=== PATIENT | male | born 1985 | race African-American/Black ===

== ENCOUNTER 2022-08-23 15:51 | Emergency (ER) | payer OTHER, SELFPAY ==
--- NOTE | 2022-08-23 17:31 | ED.GENADULT ---
HPI - General Adult General Chief complaint: Urogenital-Male Stated complaint: STD Testing Time Seen by Provider: 08/23/22 17:31 Source: patient Mode of arrival: ambulatory Limitations: no limitations History of Present Illness HPI narrative: 37-year-old male patient presents to the [facility] with request for STD testing. Patient states he is sexually active with more than 1 person and last time he had unprotected sex was proximally 2 weeks ago. Patient states about 3 days ago started having pain and burning with urination as well as some lower abdominal pain. Denies any fevers, body aches or chills. Denies any low back pain. Denies any nausea vomiting or diarrhea. Patient states he has had a urinary tract infection before in the past from sexual intercourse. Patient states he only has sex with females and only vaginally. Patient denies any penile discharge at this time. Related Data Allergies Allergy/AdvReac Type Severity Reaction Status Date / Time No Known Allergies Allergy Verified 08/23/22 17:45 Review of Systems Review of Systems: CONSTITUTIONAL: Denies fever, chills, or sweats. EYES: Denies visual changes, redness, or discharge. ENT: Denies rhinorrhea, congestion, sore throat, or otalgia. CARDIOVASCULAR: Denies chest pain, palpitations, or edema. RESPIRATORY: Denies cough or dyspnea. GASTROINTESTINAL: Positive lower abdominal pressure, denies nausea, vomiting, or diarrhea. GENITOURINARY: Positive dysuria denies hematuria. SKIN: Denies rash or itching. MUSCULOSKELETAL: Denies back pain, joint pain, or myalgia. NEUROLOGIC: Denies headache, numbness, or weakness. PSYCHIATRIC: Denies anxiety or depression. PMFSH Comments At the time of my signature I agree with nursing past medical history, surgical, social, and family history. There is no relevant family history pertinent to the presenting complaint. Exam Narrative: GENERAL: Well-appearing, well-nourished, and in no acute distress. HEAD: Normocephalic, atraumatic. EYES: PERRLA and EOMI. ENT: Nares clear, no rhinorrhea or epistaxis. Mucous membranes moist. NECK: Supple. No lymphadenopathy CHEST: Clear to auscultation. No respiratory distress. HEART: Regular rate and rhythm. No murmur heard. Normal peripheral pulses. ABDOMEN: Soft, nontender, nondistended, normal active bowel sounds. EXTREMITIES: Normal range of motion. No edema. SKIN: Warm, dry, no rash. NEURO: No focal deficits. Alert and oriented x3. Course Course Level of Care: Express Care Visit Reevaluation(s) Reevaluation #1: Urine dip was completely negative. We will go ahead and send off the urine for STD testing and go ahead and treat patient today for gonorrhea, chlamydia and Trichomonas. Date: 08/23/22 Time: 18:10 Vital Signs Vital signs: Vital signs reviewed Medical Decision Making MDM Narrative Medical decision making narrative: Discussed with patient that we are very limited on what STDs we can test for. Discussed with him that we will go ahead and do urine dip today to assess for urinary tract infection we will also take the urine is sent off to the lab for STD testing. Discussed with patient if we are going to test him for STDs we will go ahead and treat him for STDs today. Discussed with patient that he needs to refrain from any sexual intercourse as well as alcohol since he will be on antibiotics at least the next week. Patient verbalized understanding denies any other questions or concerns at this time. Differential Diagnosis Differential Diagnosis: Differential diagnosis: Gonorrhea, chlamydia, Trichomonas, bacterial vaginosis, herpes, HIV, yeast infection, urinary tract infection. Lab Data Labs: Lab Results 08/23/22 Range/Units 17:40 T. vaginalis Amp RNA Pending Urine Glucose Negative Reference Range: Negative Urine Bilirubin Negative Re
[2022-08-23] MEDS: cefTRIAXone 500 MG, LIDOCAINE HCL 1% LOCAL INJ 1 ML IM (18:01)
[2022-08-23 18:15] VITALS: BP 127/89; PULSE 60; RESP 18; TEMP 37; O2SAT 100
== END 2022-08-23 18:23 | disposition home or self-care (01) ==
PROVIDERS: Emergency Provider Nurse Practitioner Family
DX: R30.0 Dysuria (principal); R10.30 Lower abdominal pain, unspecified; Z20.2 Contact with and (suspected) exposure to infections with a predominantly sexual mode of transmission
CPT/HCPCS: 81003; 87491; 87591; 87661; 96372; 99213; G0463; J0696